=== PATIENT | female | born 1980 | race Caucasian/White ===

== ENCOUNTER → 2021-01-31 | Outpatient (REF) | payer OTHER ==
[2021-01-31 14:16] LABS: CREATININE, URINE 62.6 MG/DL; MALB URINE SIEMENS 33.4 MG/L; MAU/CREAT RATIO 53.3 MCG/MG (0.0-30.0)
== END ==
LOC: M LAB REF 13:17
PROVIDERS: ATTEND Nurse Practitioner Family
DX: E11.65 Type 2 diabetes mellitus with hyperglycemia (principal)

== ENCOUNTER → 2022-03-14 | Outpatient (REF) | payer OTHER ==
[2022-03-14 19:31] LABS: CREATININE, URINE 36.7 MG/DL; MALB URINE SIEMENS < 5.0 MG/DL; MAU/CREAT RATIO 13.6 MCG/MG (0.0-30.0)
== END ==
LOC: M LAB REF 16:55
PROVIDERS: ATTEND Nurse Practitioner Family
DX: E11.65 Type 2 diabetes mellitus with hyperglycemia (principal)

== ENCOUNTER 2023-08-18 20:07 | Inpatient (IN) | payer BC, OTHER, SELFPAY ==
[~2023-08-18] VITALS: Ht 165.1 cm; Wt 105.6 kg
[2023-08-18 20:48] LABS: BASO # 0.1 10^3/uL (0.0-0.2); BASO % 1.1 % (0.0-1.0); EOS # 0.2 10^3/uL (0.0-0.5); EOS % 2.8 % (0.0-3.0); HEMATOCRIT 40.6 % (36.0-47.0); HEMOGLOBIN 13.8 g/dl (12.0-15.5); LYMPH % 39.4 % (24.0-44.0); MEAN CORPUSCULAR HEMOGLOBIN 30.5 pg (27.0-33.0); MEAN CORPUSCULAR VOLUME 89.6 fl (80.0-96.0); MONO # 0.6 10^3/uL (0.0-0.8); MONO % 7.2 % (2.0-8.0); NEUTROPHILS # 3.7 10^3/uL (1.5-8.5); PLATELET COUNT, AUTOMATED 311 10^3/uL (150-450); RED BLOOD COUNT 4.53 10^6/uL (4.00-5.40); WHITE BLOOD COUNT 7.6 10^3/uL (4.0-10.0)
[2023-08-18 21:13] LABS: AMPHETAMINES LEVEL URINE NEGATIVE (NEGATIVE); BARBITURATES URINE NEGATIVE (NEGATIVE); BENZODIAZEPINES URINE NEGATIVE (NEGATIVE); COCAINE METABOLITE URINE NEGATIVE (NEGATIVE); METHADONE URINE NEGATIVE (NEGATIVE); OPIATES URINE NEGATIVE (NEGATIVE); PHENCYCLIDINE URINE NEGATIVE (NEGATIVE)
[2023-08-18 21:15] LABS: ETHYL ALCOHOL (ETHANOL) < 0.003 % (0.000-0.010)
[2023-08-18 21:17] LABS: ALBUMIN 3.8 G/DL (3.2-5.2); ALKALINE PHOSPHATASE 103 U/L (46-116); ALT/SGPT 87 U/L (7.0-40); AST/SGOT 102 U/L (<34); BILIRUBIN,DIRECT 0.1 MG/DL (<0.4); BILIRUBIN,TOTAL 0.4 MG/DL (0.3-1.2); BLOOD UREA NITROGEN 13 MG/DL (9-23); CALCIUM LEVEL 9.8 MG/DL (8.5-10.1); CARBON DIOXIDE LEVEL 23 MMOL/L (20-31); CHLORIDE LEVEL 110 MMOL/L (98-107); CREATININE FOR GFR 0.71 MG/DL (0.55-1.30); GLOMERULAR FILTRATION RATE > 60.0 (>58); GLUCOSE, FASTING 131 MG/DL (60-100); POTASSIUM SERUM 4.2 MMOL/L (3.5-5.1); SALICYLATE LEVEL < 3.0 MG/DL (<30); SODIUM LEVEL 141 MMOL/L (136-145); TOTAL PROTEIN 7.1 G/DL (5.7-8.2)
[2023-08-18] MEDS ORDERED: LISI40TA4 PO (21:18)
[2023-08-18] MEDS ORDERED: ABIL1TAB11 PO (21:18)
[2023-08-18] MEDS ORDERED: GLIP10TA PO (21:18)
[2023-08-18] MEDS ORDERED: ATOR1TAB21 PO (21:18)
[2023-08-18] MEDS ORDERED: HYDR-3363 PO (21:18)
[2023-08-18] MEDS ORDERED: TOPI200T7 PO (21:18)
[2023-08-18] MEDS ORDERED: AMLO1TAB25 PO (21:18)
[2023-08-18] MEDS ORDERED: LEXA1TAB2 PO (21:18)
[2023-08-18] MEDS ORDERED: MONT10TA97 PO (21:18)
[2023-08-18] MEDS ORDERED: ESTR3TA PO (21:18)
[2023-08-18] MEDS ORDERED: CETI10CH PO (21:18)
[2023-08-18] MEDS ORDERED: NOXI1TAB PO (21:18)
[2023-08-18] MEDS ORDERED: METF-838 PO (21:18)
[2023-08-18] MEDS ORDERED: LITH300C PO (21:18)
[2023-08-18 21:26] LABS: CANNABINOIDS URINE POSITIVE (NEGATIVE); HCG, SERUM QUALITATIVE NEGATIVE (NEGATIVE)
[2023-08-19 06:21] LABS: LITHIUM LEVEL 0.26 MMOL/L (1.0-1.20)
[2023-08-19] MEDS ORDERED: PRAZ1CAP PO (08:35)
[2023-08-19] MEDS ORDERED: BASA100I SQ (08:35)
[2023-08-19] MEDS ORDERED: GABA-282 PO (08:35)
[2023-08-19] MEDS ORDERED: SEMA0.257 SQ (08:35)
[2023-08-19] MEDS ORDERED: glipiZIDE (GLUCOTROL) 5 MG TAB PO SCH (09:00)
[2023-08-19] MEDS ORDERED: ESCITALOPRAM OXALATE 10 MG TAB (LEXAPRO) PO SCH (09:00)
[2023-08-19] MEDS ORDERED: D-50CAP PO (09:58)
[2023-08-19] MEDS ORDERED: GLIP10TA18 PO (09:58)
[2023-08-19] MEDS ORDERED: LEXA1TAB PO (09:58)
[2023-08-19] MEDS ORDERED: TOPI100T9 PO (09:58)
[2023-08-19] MEDS ORDERED: CETI-24 PO (09:58)
[2023-08-19] MEDS ORDERED: HOME MED LIST COMPLETE! XX SCH (10:00)
[2023-08-19] MEDS ORDERED: PILL CUTTER 1 EACH XX ONE (10:31)
[2023-08-19] MEDS: LITHIUM CARBONATE 300 MG CAP PO SCH (10:37)
[2023-08-19] MEDS: CETIRIZINE (ZyrTEC) 10 MG TAB PO SCH (10:38)
[2023-08-19] MEDS: lisinopriL 40MG TAB PO SCH (10:38)
[2023-08-19] MEDS: FOLIC ACID 1MG TAB PO SCH (10:38)
[2023-08-19] MEDS: metFORMIN (GLUCOPHAGE) 1000MG TABLET PO SCH (10:38)
[2023-08-19] MEDS: TOPIRAMATE (TopAMAX) 100 MG TAB PO SCH ×2 (10:38→21:01)
[2023-08-19] MEDS: GABAPENTIN 300 MG CAP PO SCH ×2 (10:39→21:00)
[2023-08-19] MEDS: ESCITALOPRAM OXALATE 10 MG TAB (LEXAPRO) PO SCH ×2 (11:35→11:36)
[2023-08-19] MEDS: glipiZIDE XL 5 MG TABCR PO SCH (13:16)
[2023-08-19] MEDS ORDERED: MOM 30ML SUSPENSION UDC PO PRN (15:20)
[2023-08-19 16:47] VITALS: BP 105/54; TEMP 98.5; O2SAT 98
[2023-08-19] MEDS ORDERED: DEXTROSE 50% 50ML SYRINGE IV PRN (18:45)
[2023-08-19] MEDS ORDERED: GLUCAGON INJ 1MG VIAL SC PRN (18:45)
[2023-08-19] MEDS ORDERED: GLUCOSE 4 GM CHEW PO PRN (18:45)
[2023-08-19] MEDS: ACETAMINOPHEN TAB 650MG DOSE (2X325MG) PO PRN (19:53)
[2023-08-19] MEDS: INSULIN LISPRO (NovoLOG) PER UNIT SC SCH (20:54)
[2023-08-19] MEDS ORDERED: MONTELUKAST 10 MG TAB PO SCH (21:00)
[2023-08-19] MEDS: ATORVASTATIN 20 MG TAB PO SCH (21:00)
[2023-08-19] MEDS ORDERED: LEVEMIR (INSULIN DETEMIR) 1 UNITS/0.01ML SC SCH (21:00)
[2023-08-19] MEDS ORDERED: ATORVASTATIN 20 MG TAB PO SCH (21:00)
[2023-08-19] MEDS: metFORMIN XR 500MG TAB *GLUCOPHAGE XR PO SCH (21:00)
[2023-08-19] MEDS: MONTELUKAST 10 MG TAB PO SCH (21:00)
[2023-08-19] MEDS: PRAZOSIN 1 MG CAP PO SCH (21:01)
[2023-08-20 06:30] VITALS: BP 137/81; TEMP 99; O2SAT 98
[2023-08-20] MEDS: INSULIN LISPRO (NovoLOG) PER UNIT SC SCH (07:04)
[2023-08-20] MEDS: CETIRIZINE (ZyrTEC) 10 MG TAB PO SCH (08:25)
[2023-08-20] MEDS: glipiZIDE XL 5 MG TABCR PO SCH (08:26)
[2023-08-20] MEDS: lisinopriL 40MG TAB PO SCH (08:26)
[2023-08-20] MEDS: LITHIUM CARBONATE 300 MG CAP PO SCH (08:27)
[2023-08-20] MEDS: ESCITALOPRAM OXALATE 10 MG TAB (LEXAPRO) PO SCH (08:27)
[2023-08-20] MEDS ORDERED: ESCITALOPRAM OXALATE 10 MG TAB (LEXAPRO) PO SCH (09:00)
[2023-08-20 18:27] VITALS: BP 130/86; TEMP 97.2
[2023-08-20] MEDS: traZODone 50 MG TAB PO PRN (20:32)
[2023-08-21 06:40] VITALS: BP 121/58; TEMP 97.2; O2SAT 95
[2023-08-21] MEDS: PILL CUTTER 1 EACH XX PRN (08:55)
[2023-08-21 16:35] VITALS: BP 105/67; TEMP 97.8; O2SAT 100
[2023-08-21] MEDS: metFORMIN XR 500MG TAB *GLUCOPHAGE XR PO SCH (18:12)
[2023-08-21 21:16] VITALS: BP 154/93
[2023-08-21] MEDS: LITHIUM CARBONATE 300 MG CAP PO SCH (21:21)
[2023-08-22 06:29] VITALS: BP 110/56; TEMP 99; O2SAT 98
[2023-08-22] MEDS: VENLAFAXINE **XR** 75MG CAPSULE PO SCH (08:36)
[2023-08-22 09:48] VITALS: BP 179/79; TEMP 97; O2SAT 98
[2023-08-22] MEDS: CALCIUM CARBONATE 500 MG CHEW U/D PO PRN (10:32)
[2023-08-22 12:03] VITALS: BP 141/87; TEMP 97.6; O2SAT 99
[2023-08-22 16:45] VITALS: BP 126/68; TEMP 97.1; O2SAT 97
[2023-08-22 20:13] VITALS: BP 144/98
[2023-08-23 06:23] VITALS: BP 104/59; TEMP 97.1; O2SAT 97
[2023-08-23 16:12] VITALS: BP 122/77; TEMP 97.2; O2SAT 98
[2023-08-23 20:57] VITALS: BP 108/88
[2023-08-23] MEDS: traZODone 50 MG TAB PO PRN (21:00)
[2023-08-24 06:08] VITALS: BP 106/62; TEMP 97.4; O2SAT 100
[2023-08-24 08:40] VITALS: BP 118/78
[2023-08-24 14:09] LABS: TOPIRAMATE LEVEL 7.5 ug/mL (2.0-25.0)
[2023-08-24 18:17] VITALS: BP 116/72; TEMP 97.1
[2023-08-25 06:31] VITALS: BP 115/60; TEMP 97.6; O2SAT 100
[2023-08-25 09:14] VITALS: BP 122/76
[2023-08-25] MEDS: VENLAFAXINE **XR** 37.5 MG CAPSULE PO SCH (09:16)
[2023-08-25] MEDS: buPROPion **XL** TABLET 150MG (WELLBUTRIN XL) PO SCH (13:55)
[2023-08-25] MEDS: MAALOX 30 ML SUSP *UDC PO PRN (13:55)
[2023-08-25 18:57] VITALS: BP 134/79; TEMP 98.2
[2023-08-25] MEDS: LITHIUM CARBONATE 300 MG CAP PO SCH (20:25)
[2023-08-26 06:15] VITALS: BP 97/56; TEMP 96.6; O2SAT 100
[2023-08-26 07:30] LABS: CHOLESTEROL RISK RATIO 5.77 (<5); HDL CHOLESTEROL 27.2 MG/DL (>40); LDL CHOLESTEROL 77.4 MG/DL (<100); NON-HDL-C 129.8 MG/DL
[2023-08-26 08:44] VITALS: BP 113/72
[2023-08-26] MEDS: OMEGA-3 1000MG CAPSULE PO SCH (10:56)
[2023-08-26 18:15] VITALS: BP 136/74; TEMP 98.1
[2023-08-27 06:21] VITALS: BP 106/63; TEMP 98; O2SAT 96
[2023-08-27] MEDS: OLANZapine ORAL DISINTEGRATING TAB 5MG PO PRN (08:22)
[2023-08-27 20:06] VITALS: BP 132/70
[2023-08-27] MEDS: LITHIUM CARBONATE 300 MG CAP PO SCH (20:11)
[2023-08-27] MEDS: ARIPiprazole 10 MG TAB PO SCH (20:11)
[2023-08-28 06:43] VITALS: BP 111/62; TEMP 96.2; O2SAT 95
[2023-08-28 16:02] VITALS: BP 126/87; TEMP 97.8; O2SAT 100
[2023-08-29 06:24] VITALS: BP 108/62; TEMP 96.9; O2SAT 97
[2023-08-29 16:19] VITALS: BP 115/71; TEMP 97.3; O2SAT 99
[2023-08-29] MEDS: diphenhydrAMINE 25MG CAP PO PRN (21:34)
[2023-08-30 06:20] VITALS: BP 103/63; TEMP 97; O2SAT 99
[2023-08-30 15:46] VITALS: BP 109/67; TEMP 97.5; O2SAT 100
[2023-08-31 06:33] VITALS: BP 137/50; TEMP 96.7; O2SAT 100
[2023-08-31] MEDS ORDERED: VENLAFAXINE **XR** 37.5 MG CAPSULE PO SCH (09:00)
[2023-08-31] MEDS: VENLAFAXINE **XR** 75MG CAPSULE PO SCH (09:57)
[2023-08-31 18:00] VITALS: BP 135/83; TEMP 97.1
[2023-08-31 20:34] VITALS: BP 121/79
[2023-09-01 06:09] VITALS: BP 111/64; TEMP 96.9; O2SAT 97
[2023-09-01 08:25] VITALS: BP 129/69
[2023-09-01 08:27] VITALS: BP 129/69
[2023-09-01] MEDS ORDERED: LITH300C PO (11:09)
[2023-09-01] MEDS ORDERED: ABIL10TA9 PO (11:09)
[2023-09-01] MEDS ORDERED: TRAZ-252 PO (11:09)
[2023-09-01] MEDS ORDERED: FISH1CAP26 PO (11:09)
[2023-09-01] MEDS ORDERED: BUPR150T12 PO (11:09)
[2023-09-01] MEDS ORDERED: VENL75CA47 PO (11:09)
[2023-09-01] MEDS ORDERED: HYDR-3363 PO (11:09)
== END 2023-09-01 12:11 | disposition home or self-care (01) | DRG 753 ==
LOC: M ED 20:07 → M ED INP 08-19 15:20 → M PSY 08-19 16:55
PROVIDERS: ADMIT Student in an Organized Health Care Education/Training Program; ATTEND Student in an Organized Health Care Education/Training Program
DX: F31.30 Bipolar disorder, current episode depressed, mild or moderate severity, unspecified (principal); F60.3 Borderline personality disorder; R45.851 Suicidal ideations; I10 Essential (primary) hypertension; E11.42 Type 2 diabetes mellitus with diabetic polyneuropathy; F60.89 Other specific personality disorders; E78.5 Hyperlipidemia, unspecified; M79.7 Fibromyalgia; Z62.810 Personal history of physical and sexual abuse in childhood; Z91.410 Personal history of adult physical and sexual abuse; Z91.51 Personal history of suicidal behavior; Z81.8 Family history of other mental and behavioral disorders; Z90.13 Acquired absence of bilateral breasts and nipples; Z63.79 Other stressful life events affecting family and household; Z79.84 Long term (current) use of oral hypoglycemic drugs; Z79.4 Long term (current) use of insulin; Z79.899 Other long term (current) drug therapy; Z88.1 Allergy status to other antibiotic agents; Z88.3 Allergy status to other anti-infective agents; Z88.8 Allergy status to other drugs, medicaments and biological substances; Z59.86 Financial insecurity